=== PATIENT | male | born 1990 | race Caucasian/White ===

== ENCOUNTER 2018-06-14 08:19 | Emergency (ER) | payer SELFPAY ==
--- NOTE | 2018-06-14 10:19 | EDM.PDOC ---
ED HPI GENERAL MEDICAL PROBLEM - General Chief Complaint: General Stated Complaint: DIZZY AND NUMBNESS Time Seen by Provider: 06/14/18 08:42 Source of Information: Reports: Patient, RN Notes Reviewed - History of Present Illness INITIAL COMMENTS - FREE TEXT/NARRATIVE: 27-year-old male comes in with weakness and paresthesias of his hands or arms the past 4-5 days. He states this did start about 5 days ago and is worse the last day or 2. 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 He has transgender and transitioning to female. His/her dose of injectable estrogen was doubled just a week or 2 ago. His dosage of spironolactone at that time was also increased from 50 twice a day to 75 twice a day. There's been no major fall or injury. No recent nausea vomiting. - Related Data Allergies Allergy/AdvReac Type Severity Reaction Status Date / Time No Known Allergies Allergy Verified 06/14/18 08:35 Home Meds: Home Meds Estradiol Cypionate [Depo-Estradiol] 20 mg IM ASDIRECTED 06/14/18 [History] Spironolactone 75 mg PO BID 06/14/18 [History] Past Medical History Endocrine/Metabolic History: Reports: Other (See Below) Other Endocrine/Metabolic History: Patient is transitioning from male to female , taking IM estrogen Social & Family History - Tobacco Use Smoking Status *Q: Current Every Day Smoker Years of Tobacco use: 10 Packs/Tins Daily: 0.5 - Caffeine Use Caffeine Use: Reports: Energy Drinks - Recreational Drug Use Recreational Drug Use: No ED ROS GENERAL - Review of Systems Review Of Systems: See Below Constitutional: Denies: Fever, Chills HEENT: Reports: No Symptoms Respiratory: Denies: Shortness of Breath, Wheezing Cardiovascular: Denies: Chest Pain GI/Abdominal: Denies: Abdominal Pain, Nausea, Vomiting Musculoskeletal: Denies: Neck Pain, Back Pain Skin: Denies: Rash Neurological: Reports: Dizziness, Numbness, Tingling ED EXAM, GENERAL - Physical Exam Exam: See Below General Appearance: Alert, No Apparent Distress Eye Exam: Bilateral Eye: PERRL Throat/Mouth: Normal Inspection, Normal Oropharynx Head: Atraumatic. No: Facial Swelling Neck: Supple, Full Range of Motion Respiratory/Chest: No Respiratory Distress, Lungs Clear, Normal Breath Sounds Cardiovascular: Regular Rate, Rhythm Neurological: Alert, Oriented, No Motor/Sensory Deficits, Other (Finger to nose testing normal, no focal weakness) Skin Exam: Warm, Dry, Normal Color Course - Vital Signs Last Recorded V/S: Last Vital Signs Temp 97.1 F 06/14/18 08:31 Pulse 90 06/14/18 08:31 Resp 18 06/14/18 08:31 BP 121/78 06/14/18 08:31 Pulse Ox 100 06/14/18 08:31 - Orders/Labs/Meds Orders: Active Orders 24 hr Category Date Time Status ESTROGENS FRACTIONATED, S [REF] Stat Lab 06/14/18 10:13 Ordered Labs: Laboratory Tests 06/14/18 06/14/18 Range/Units 09:18 09:18 WBC 10.30 H (4.23-9.07) K/mm3 RBC 3.58 L (4.63-6.08) M/mm3 Hgb 11.0 L (13.7-17.5) gm/L Hct 32.6 L (40.1-51.0) % MCV 91.1 (79.0-92.2) fl MCH 30.7 (25.7-32.2) pg MCHC 33.7 (32.2-35.5) g/dl RDW Std Deviation 43.8 (35.1-43.9) fL Plt Count 249 (163-337) K/mm3 MPV 9.4 (9.4-12.3) fl Neut % (Auto) 65.0 (34.0-67.9) % Lymph % (Auto) 18.5 L (21.8-53.1) % [place] % (Auto) 11.4 (5.3-12.2) % Eos % (Auto) 4.8 (0.8-7.0) Baso % (Auto) 0.2 (0.1-1.2) % Neut # (Auto) 6.70 H (1.78-5.38) K/mm3 Lymph # (Auto) 1.91 (1.32-3.57) K/mm3 [place] # (Auto) 1.17 H (0.30-0.82) K/mm3 Eos # (Auto) 0.49 (0.04-0.54) K/mm3 Baso # (Auto) 0.02 (0.01-0.08) K/mm3 Sodium 143 (136-145) mEq/L Potassium 3.9 (3.5-5.1) mEq/L Chloride 109 H (98-107) mEq/L Carbon Dioxide 25 (21-32) mEq/L Anion Gap 12.9 (5-15) BUN 25 H (7-18) mg/dL Creatinine 1.0 (0.7-1.3) mg/dL Est Cr Clr Drug Dosing 128.14 mL/min Estimated GFR (MDRD) > 60 (>60) mL/min BUN/Creatinine Ratio 25.0 H (14-18) Glucose 105 (74-106) mg/dL Calcium 8.5 (8.5-10.1) mg/dL Total Bilirubin 0.3 (0.2-1.0) mg/dL AST 41 H (15-37) U/L ALT 31 (16-63) U/L Alkaline Phosphatase 52 (46-116) U/L Total Protein 6.4 (6.4-8.2) g/dl Albumin 3.4 (3.4-5.0) g/dl Globulin 3.0 gm/dL Albumin/Globulin Ratio 1.1 (1-2) - Re-Assessments/Exams Free Text/Narrative Re-Assessment/Exam: 06/14/18 10:27 BUN very mildly elevated chemistries otherwise normal, hemoglobin mildly low at 11. He's had no recent GI bleeding or anything of that nature. He did ask about getting an estrogen level. I did check with lab and that is a send out. It has been ordered. Discharge instructions as documented. Departure - Departure Time of Disposition: 10:14 Disposition: Home, Self-Care 01 Condition: Fair Clinical Impression: Paresthesias - Discharge Information Referrals: PCP,Not In Area [Primary Care Provider] - Forms: ED Department Discharge Additional Instructions: Your chemistries today showed very mild dehydration, otherwise normal. Your hemoglobin is mildly low at 11. I do suggest taking iron supplement available OTC twice daily. Estrogen level has been ordered, that is a send out, will be available in 3-4 days. I recomend following up at the [facility] in about 4-5 days and they can check on results for you. Follow-up with your regular medical provider Manny as needed. - My Orders Last 24 Hours: My Active Orders 06/14/18 10:13 ESTROGENS FRACTIONATED, S [REF] Stat - Assessment/Plan Last 24 Hours: My Active Orders 06/14/18 10:13 ESTROGENS FRACTIONATED, S [REF] Stat
== END 2018-06-14 10:36 | disposition home or self-care (01) ==
LOC: JD.ED 08:19
DX: R20.2 Paresthesia of skin (principal); F17.210 Nicotine dependence, cigarettes, uncomplicated
CPT/HCPCS: 36415; 80053; 82670; 82679; 85025; 99282; 99284

== ENCOUNTER 2018-07-24 11:03 | Emergency (ER) | payer SELFPAY ==
--- NOTE | 2018-07-24 12:55 | EDM.PDOC ---
ED HPI GENERAL MEDICAL PROBLEM - General Chief Complaint: Eye Problems Stated Complaint: R EYE SWELLING Time Seen by Provider: 07/24/18 11:18 Source of Information: Reports: Patient History Limitations: Reports: No Limitations - History of Present Illness INITIAL COMMENTS - FREE TEXT/NARRATIVE: Pt is 28 yo M comes in for R eye swelling that started last night and when he woke up this morning he could not open his eye. He denies any purulent discharge or other discomfort with his eye or changes in vision. He has never had anything like this before. No known seasonal or contact allergies. He denies any recent bug bite, scratching, trauma, makeup or eyelash extensions. He does wear contacts. He is currently staying at a hotel. He took Benadryl and iced the ice with no improvement. - Related Data Allergies Allergy/AdvReac Type Severity Reaction Status Date / Time No Known Allergies Allergy Verified 06/14/18 08:35 Home Meds: Home Meds Estradiol Cypionate [Depo-Estradiol] 20 mg IM ASDIRECTED 06/14/18 [History] Spironolactone 75 mg PO BID 06/14/18 [History] predniSONE [Prednisone] 40 mg PO DAILY 3 Days #3 tablet 07/24/18 [Rx] Past Medical History HEENT History: Reports: Impaired Vision Endocrine/Metabolic History: Reports: Other (See Below) Other Endocrine/Metabolic History: Patient is transitioning from male to female , taking IM estrogen - Past Surgical History GI Surgical History: Reports: Appendectomy Social & Family History - Tobacco Use Smoking Status *Q: Current Every Day Smoker Years of Tobacco use: 12 Packs/Tins Daily: 1 - Caffeine Use Caffeine Use: Reports: Coffee - Recreational Drug Use Recreational Drug Use: No ED ROS GENERAL - Review of Systems Review Of Systems: ROS reveals no pertinent complaints other than HPI. ED EXAM GENERAL W FULL EYE - Physical Exam Exam: See Below Exam Limited By: No Limitations General Appearance: Alert, WD/WN, No Apparent Distress Eye Exam: Bilateral Eye: EOMI, Normal Inspection (eyelid is swollen, but eye itself is fine), PERRL Visual Acuity (R) 20/: 50 Eyelids: Right: Edema, Left: Normal Appearance Conjunctiva & Sclera: Bilateral: Normal Appearance Cornea Exam: Bilateral: Normal Appearance Extraocular Movements: Bilateral: Intact Pupils: Normal Accommodation Pupillary Size: Bilateral: 3 mm Pupillary Reaction: Bilateral: Brisk Ears: Normal External Exam, Hearing Grossly Normal Nose: Normal Inspection, Normal Mucosa, No Blood Throat/Mouth: Normal Inspection, Normal Lips, Normal Teeth, Normal Gums, Normal Oropharynx, Normal Voice, No Airway Compromise Head: Atraumatic, Normocephalic Neck: Normal Inspection, Supple, Non-Tender, Full Range of Motion Respiratory/Chest: No Respiratory Distress, Lungs Clear, Normal Breath Sounds, No Accessory Muscle Use, Chest Non-Tender Cardiovascular: Normal Peripheral Pulses, Regular Rate, Rhythm, No Edema, No Gallop, No JVD, No Murmur, No Rub Skin Exam: Warm, Dry, Intact, Normal Color, No Rash Course - Vital Signs Last Recorded V/S: Last Vital Signs Temp 99 F 07/24/18 11:19 Pulse 89 07/24/18 11:19 Resp 18 07/24/18 11:19 BP 99/63 07/24/18 11:19 Pulse Ox 100 07/24/18 11:19 Departure - Departure Time of Disposition: 12:57 Disposition: Home, Self-Care 01 Condition: Fair Clinical Impression: Periorbital edema of right eye, Contact dermatitis - Discharge Information *PRESCRIPTION DRUG MONITORING PROGRAM REVIEWED*: Not Applicable *COPY OF PRESCRIPTION DRUG MONITORING REPORT IN PATIENT BOBO: Not Applicable Prescriptions: predniSONE [Prednisone] 40 mg PO DAILY 3 Days #3 tablet Instructions: Angioedema, [id number], Contact Dermatitis, [id number] Referrals: Evin Alcantar MD [Primary Care Provider] - Additional Instructions: You were seen in the ED today for new onset right eye swelling. At this time, it does not seem that there is an infection. Although there is no clear source, it seems likely this is a contact dermatitis/allergic reaction to something in the environment. You will be given Prednisone 40mg x3 days for inflammation treatment and recommend you continue to use Benadryl. Do not operate machinery/ drive when on Benadryl as it will cause drowsiness. If you need to be driving, suggest over the counter Claritin or Zyrtec instead. Also continue cool compress to the eye. Recommend follow up with your primary care physician. If new or worsening symptoms, please return to the ED.
[2018-07-24] MEDS ORDERED: predniSONE 20 MG Tab PO ONE (13:00)
== END 2018-07-24 13:10 | disposition home or self-care (01) ==
LOC: JD.ED 11:03
DX: H05.221 Edema of right orbit (principal); L25.9 Unspecified contact dermatitis, unspecified cause; F17.210 Nicotine dependence, cigarettes, uncomplicated; Z79.899 Other long term (current) drug therapy
CPT/HCPCS: 99283; A9270